=== PATIENT | female | born 1985 | race Asian ===

== ENCOUNTER 2017-12-02 18:08 | Emergency (ER) | payer BC ==
[~2017-12-02] VITALS: Ht 157.5 cm; Wt 89.4 kg
[2017-12-02 18:14] VITALS: BP_SYST 135
--- NOTE | 2017-12-02 18:22 | NUR ---
Patient to ER bed 6 to gown for evaluation. Side rails up. Report given to Mark GARCÍA.
--- NOTE | 2017-12-02 18:25 | NUR ---
Patient to ER via triage with c/o headache and blurred vision to right eye x 1 day. Patient denies any known trauma/injury. Patient is awake, alert and oriented in no acute distress, vital signs stable, respirations even and unlabored, skin warm and dry to touch. Patient able to ambulate to bed 6 with slow, steady gait without difficulty. Awaiting evaluation by ER MD, will continue to observe and assess.
--- NOTE | 2017-12-02 18:50 | NUR ---
Dr Petty at bedside to evaluate patient.
[2017-12-02] MEDS ORDERED: NACL 0.9% 1,000 ML IV ONE (19:00)
[2017-12-02] MEDS ORDERED: METOCLOPRAMIDE HCL 10 MG/2 ML VIAL IVP ONE (19:00)
[2017-12-02] MEDS ORDERED: DEXAMETHASONE SOD PHOSPHATE 10 MG/ML VIAL IVP ONE (19:00)
[2017-12-02 19:19] LABS: BASOPHILS # (AUTO) 0.1 K/uL (0.0-0.2); BASOPHILS % (AUTO) 0.9 % (0.0-2.0); EOSINOPHILS # (AUTO) 0.1 K/uL (0.0-0.4); EOSINOPHILS % (AUTO) 1.3 % (0.0-4.0); HEMATOCRIT 33.2 % (36-48); HEMOGLOBIN 11.1 g/dL (12.0-16.0); LYMPHOCYTES # (AUTO) 2.4 K/uL (1.0-5.5); LYMPHOCYTES % (AUTO) 39.5 % (20.5-51.5); MEAN CORPUSCULAR HEMOGLOBIN 24 pg (27-31); MEAN CORPUSCULAR HGB CONC 34 % (32-36); MEAN CORPUSCULAR VOLUME 72 fL (79.0-98.0); MONOCYTES # (AUTO) 0.5 K/uL (0.0-1.0); MONOCYTES % (AUTO) 8.9 % (1.7-9.3); NEUTROPHILS # (AUTO) 2.9 K/uL (1.8-7.7); NEUTROPHILS % (AUTO) 49.4 % (40.0-70.0); PLATELET COUNT (AUTO) 291 K/uL (130-430); RED BLOOD CELL COUNT(AUTO) 4.62 MIL/uL (4.2-6.2)
[2017-12-02 19:31] LABS: CALCIUM 9.4 mg/dL (8.4-11.0); CREATININE 0.69 mg/dL (0.55-1.30); POTASSIUM 3.6 mmol/L (3.5-5.1)
[2017-12-02 19:36] LABS: ALBUMIN 3.8 g/dL (3.4-4.8); TOTAL BILIRUBIN 0.4 mg/dL (0.0-1.0)
[2017-12-02] MEDS ORDERED: DIPHENHYDRAMINE HCL 50 MG CAPSULE PO ONE (19:45)
--- NOTE | 2017-12-02 19:45 | NUR ---
Patient resting quietly in no acute distress. Lights dimmed for patient comfort, patient provided with blankets for comfort. Awaiting dispo.
[2017-12-02 20:08] LABS: BILIRUBIN,URINE NEGATIVE (NEGATIVE); BLOOD, URINE 3+ (NEGATIVE); CLARITY/URINE CLEAR (CLEAR); GLUCOSE,URINE NEGATIVE (NEGATIVE); KETONES,URINE NEGATIVE (NEGATIVE); LEUKOCYTE ESTERASE ,URINE TRACE (NEGATIVE); NITRITE, URINE NEGATIVE (NEGATIVE); PH,URINE 6.5 (5.0-8.0); PROTEIN URINE 2+ (NEGATIVE); UROBILINOGEN,URINE 0.2 (0.2-1.0)
[2017-12-02 20:10] LABS: COLOR,URINE RED (YELLOW)
[2017-12-02 20:19] LABS: RBC,URINE 20-50 /HPF (0-3)
[2017-12-02 20:20] LABS: BACTERIA,URINE FEW /HPF (None Seen); MUCUS,URINE None Seen /LPF (None Seen); YEAST,URINE None Seen /HPF (None Seen)
--- NOTE | 2017-12-02 20:45 | NUR ---
Patient resting quietly in no acute distress.
--- NOTE | 2017-12-02 21:45 | NUR ---
Patient resting quietly in no acute distress, states she feels better and wants to go home. No adverse reaction noted to medication.
[2017-12-02 22:05] VITALS: BP_SYST 130
--- NOTE | 2017-12-02 22:05 | NUR ---
Patient given written and verbal discharge instructions and verbalizes understanding. ER MD discussed with patient the results and treatment provided. Patient in stable condition. ID arm band removed. IV catheter removed intact and dressing applied, no active bleeding. No RX given. Patient educated on pain management and to follow up with PMD. Pain Scale 0. Opportunity for questions provided and answered. Medication side effect fact sheet provided. Patient left ER ambulating without difficulty with slow, steady gait in no acute distress. No adverse reaction noted to medication.
== END 2017-12-02 22:05 | disposition home or self-care (01) ==
LOC: SED 18:08
DX: G43.909 Migraine, unspecified, not intractable, without status migrainosus (principal); R03.0 Elevated blood-pressure reading, without diagnosis of hypertension
CPT/HCPCS: 36415; 80053; 81000; 81025; 85025; 96374; 96375; 99284; J1100; J2765; J7030; Q0163